=== PATIENT | male | born 1940 | race Two or more races ===

== ENCOUNTER → 2016-05-06 | Outpatient (CLI) | payer MEDICARE, BC ==
[~2016-05-06] MED LIST: ASPI325T32 PO; ATEN50TA PO; DOCU-144 PO; FINA5TAB4 PO; HYDR-3605 PO; LEVO88TA44 PO; LYRI25 PO; MAXZ25 PO; PANT40TA4 PO; PRAZ2CAP2 PO; ULT50 PO
== END | disposition home or self-care (01) ==
LOC: HKI 14:31
PROVIDERS: ATTEND Orthopaedic Surgery
DX: Z47.1 Aftercare following joint replacement surgery (principal); Z96.652 Presence of left artificial knee joint; I10 Essential (primary) hypertension; N40.0 Benign prostatic hyperplasia without lower urinary tract symptoms
CPT/HCPCS: G0463

== ENCOUNTER → 2016-07-08 | Outpatient (CLI) | payer MEDICARE, BC ==
[~2016-07-08] MED LIST changes: +LEVO88TA PO; -LEVO88TA44 PO; +TRAM50TA2 PO; -ULT50 PO
--- NOTE | 2016-07-08 14:47 | RADRPT ---
PROCEDURE: Left knee radiographs. CLINICAL INDICATION: Left knee pain. Postop. TECHNIQUE: Three views. Weight bearing. Frontal, lateral, and patellar view. COMPARISON: 03/29/2016. FINDINGS: There is no fracture or dislocation. The soft tissues are normal. Anterior surgical drain has been removed. 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 There is no lytic or blastic lesion. There is no joint effusion. IMPRESSION: 1. Satisfactory postoperative appearance of the left knee. RPTAT: QQ .Law Rolon MD, MD Date Time Electronically viewed and signed by .Law Rolon MD, MD on 07/08/2016 14:47 .R/
== END | disposition home or self-care (01) ==
LOC: HKI 14:19
PROVIDERS: ATTEND Orthopaedic Surgery
DX: Z47.1 Aftercare following joint replacement surgery (principal); Z96.653 Presence of artificial knee joint, bilateral
CPT/HCPCS: 73562; G0463

== ENCOUNTER → 2016-09-09 | Outpatient (CLI) | payer MEDICARE, BC ==
--- NOTE | 2016-09-09 16:28 | RADRPT ---
PROCEDURE: XR Knees. CLINICAL INDICATION: Bilateral knee pain. Postop. TECHNIQUE: Total of six views. Frontal, oblique, and lateral views of both knees. COMPARISON: No prior study is available for comparison. FINDINGS: There are bilateral total knee arthroplasties which appears satisfactory. The soft tissues are normal. There is no fracture, dislocation, or loosening. There is no lytic or blastic lesion. IMPRESSION: 1. Satisfactory postoperative appearance of both knees. RPTAT: QQ .Law Rolon MD, Date Time Electronically viewed and signed by .Law Rolon MD, on 09/09/2016 16:28 .R/
== END | disposition home or self-care (01) ==
LOC: HKI 14:56
PROVIDERS: ATTEND Orthopaedic Surgery
DX: Z47.89 Encounter for other orthopedic aftercare (principal); Z96.653 Presence of artificial knee joint, bilateral
CPT/HCPCS: 73562; G0463